=== PATIENT | female | born 1950 | race Caucasian/White ===

== ENCOUNTER → 2017-07-29 08:01 | Outpatient (CLI) | payer MEDICARE, SELFPAY ==
[2017-07-29 09:19] LABS: Absolute Lymphocyte Count 1.62 X10^3/ul (0.83-4.51); Absolute Neutrophil Count 3.9 X10^3/uL (2.0-7.7); Basophil# 0.02 X10^3/uL; Basophil% 0.3 % (0-1); Eosinophil# 0.21 X10^3/uL; Eosinophils% 3.4 % (0-5); Hemoglobin 14.1 g/dl (12.0-15.0); Lymphocyte # 1.62 X10^3/ul (4.0); Lymphocyte % 25.9 % (19-41); Mean Corp Hgb Conc 33.6 g/gl (32-36); Mean Corpuscular Hgb 32.3 pg (27.0-32.0); Mean Corpuscular Volume 96.1 fL (81-99); Mean Platelet Vol. 9.1 fl (6.2-12.0); Monocyte# 0.52 X10^3/uL; Monocyte% 8.3 % (0-10); Neutrophil # 3.88 X10^3/uL (2.7-7.7); Neutrophil % 61.9 % (47-70); Platelet Count 207 K/mm3 (150-450); RBC Distribution Width CV 12.4 % (11.6-14.6); RBC Distribution Width SD 43.8 fl (35.1-43.9); Red Blood Count 4.37 M/mm3 (4.2-5.4); White Blood Count 6.3 K/mm3 (4.4-11.0)
[2017-07-29 09:20] LABS: POSITIVE COUNT NO; POSITIVE DIFFERENTIAL NO; POSITIVE MORPHOLOGY NO
--- NOTE | 2017-07-29 09:51 | BI_ITS ---
MAMMOGRAPHY - BILATERAL SCREENING REASON FOR EXAM: Female, 67 years old. Routine annual screening examination. PERTINENT HISTORY: Non-contributory. TECHNIQUE: Digital bilateral breast bk (3D mammographic acquisition) in the CC and MLO projections. 2-D mediolateral oblique (MLO) and craniocaudad (CC) views of both breasts were obtained. CAD: Full Field Digital Mammography with Computer Added Detection was performed. COMPARISON: Comparison is made with prior study dated December 08, 2011. FINDINGS: Breast Composition: There are scattered areas of fibroglandular density. There are no dominant masses or suspicious calcifications. No other significant abnormalities are identified. There has been no significant change since the prior study. BI/SCREENING MAMM (CAD), BILAT IMPRESSION: Stable bilateral screening mammogram. Yearly follow-up mammogram recommended. (A) ASSESSMENT CATEGORY: BIRADS Category 1: Negative. A letter regarding these results will be sent to the patient by the facility within 30 days. Approximately 10% of breast cancers are not detected by mammography. A normal mammogram should not delay biopsy of a clinically suspicious abnormality. [id number] Electronically Signed: Stevo Barraza MD at 13:01 EDT Tel [phone], Service support ,
[2017-07-29 09:52] LABS: ALB/GLOB Ratio 0.9 RATIO (0.9-2.4); AST(SGOT) 33 U/L (15-37); Alanine Aminotransfer ALT/SGPT 32 U/L (13-56); Albumin, Serum 3.5 g/dL (3.2-5.0); Alkaline Phosphatase 68 U/L (45-117); Anion Gap 6 (5-15); BUN 19 mg/dL (7-18); BUN/Creat Ratio 26.3 RATIO (10-20); Calcium,Total 8.4 mg/dL (8.5-10.1); Chloride 108 mmol/L (98-107); Cholesterol 234 mg/dL (200); Creatinine, Serum 0.72 mg/dL (0.55-1.02); EST Glomerular Filtration Rate 85 mL/min (>60); Est Glom Filt Rate - Afr Amer 103 mL/min (>60); Globulin 3.7 g/dL (2.2-4.2); Glucose 82 mg/dL (74-106); High Density Lipoprotein 67 mg/dL; Potassium 3.7 mmol/L (3.5-5.1); Protein, Total 7.2 g/dL (6.4-8.2); Sodium Level 139 mmol/L (136-145); Triglycerides 82 mg/dL; Very Low Density Lipoprotein 16 mg/dL (5-40)
== END ==
PROVIDERS: Family Provider Family Medicine; PCP Family Medicine; Visit Provider Family Medicine
DX: Z00.00 Encounter for general adult medical examination without abnormal findings (principal); Z12.31 Encounter for screening mammogram for malignant neoplasm of breast
CPT/HCPCS: 36415; 77063; 77067; 80053; 80061; 85025

== ENCOUNTER → 2020-03-19 08:34 | Outpatient (CLI) | payer MEDICARE, SELFPAY ==
[2020-03-19 09:27] LABS: Cholesterol 255 mg/dL (200); High Density Lipoprotein 61 mg/dL; Triglycerides 230 mg/dL; Very Low Density Lipoprotein 46 mg/dL (5-40)
--- NOTE | 2020-03-19 09:52 | BI_ITS ---
MAMMOGRAPHY - BILATERAL SCREENING REASON FOR EXAM: Female, 69 years old. Routine annual screening examination. PERTINENT HISTORY: Non-contributory. TECHNIQUE: Digital bilateral breast graham (3D mammographic acquisition) in the CC and MLO projections. 2-D mediolateral oblique (MLO) and craniocaudad (CC) views of both breasts were obtained. CAD: Full Field Digital Mammography with Computer Added Detection was performed. COMPARISON: Comparison is made with prior study dated 07/29/2017 and 12/08/2011. FINDINGS: Breast Composition: There are scattered areas of fibroglandular density. There are no dominant masses or suspicious calcifications. No other significant abnormalities are identified. There has been no significant change since the prior study. BI/SCRN MAMM (CAD)W/GRAHAM BILAT IMPRESSION: Stable bilateral screening mammogram. Yearly follow-up mammogram recommended. (A) ASSESSMENT CATEGORY: BIRADS Category 1: Negative. A letter regarding these results will be sent to the patient by the facility within 30 days. Approximately 10% of breast cancers are not detected by mammography. A normal mammogram should not delay biopsy of a clinically suspicious abnormality. [id number] Electronically Signed: Stevo Barraza MD at 12:30 EST , Service support ,
== END ==
PROVIDERS: PCP Family Medicine; Referring Provider Family Medicine; Visit Provider Family Medicine
DX: Z12.31 Encounter for screening mammogram for malignant neoplasm of breast (principal); E78.5 Hyperlipidemia, unspecified
CPT/HCPCS: 36415; 77063; 77067; 80061

== ENCOUNTER → 2020-04-30 08:28 | Outpatient (CLI) | payer MEDICARE, SELFPAY ==
--- NOTE | 2020-04-30 08:55 | RAD_ITS ---
STUDY: AIR-CONTRAST UPPER GI SERIES. REASON FOR EXAM: Female, 70 years old. HIATAL HERNIA FLUOROSCOPY TIME (if supplied): ( 52 seconds ) minutes/seconds. 20 images were obtained. TECHNIQUE: The patient ingested barium. Multiple images of the esophagus stomach and duodenum were obtained. COMPARISON: None. FINDINGS: There is evidence of a small hernia with gastroesophageal reflux. No esophageal masses or ulcerations present. The stomach and duodenum are unremarkable. No evidence of filling defect or ulceration. RAD/Upper GI Dual Contrast IMPRESSION: Small sliding hiatal hernia with gastroesophageal reflux. Electronically Signed: Stevo Barraza MD at 14:00 EDT , Service support ,
== END ==
PROVIDERS: PCP Family Medicine; Referring Provider Family Medicine; Visit Provider Family Medicine
DX: K44.9 Diaphragmatic hernia without obstruction or gangrene (principal); K21.9 Gastro-esophageal reflux disease without esophagitis
CPT/HCPCS: 74246

== ENCOUNTER 2020-05-07 05:18 | Day surgery (SDC) | payer MEDICARE, SELFPAY ==
[2020-05-05 10:01] VITALS: BMI 30.3
[2020-05-07] VITALS (7 sets, daily range): BP systolic 98–134; BP diastolic 56–71; PULSE 48–74; RESP 14–16; TEMP 36.1–36.6; O2SAT 95–97
--- NOTE | 2020-05-07 | COLBX_PTH ---
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 Ramesh Seymour MD : 1950 BED: DIS: 05/07/2020 SPEC #: [id number] RECD: 05/07/20 07:45 STATUS: EVELYN REDDY #: [id number] SUN: 05/07/20 00:[address]: Ramesh Seymour DEPT: SURGICAL PATHOLOGY RECD BY: Kailash Han ENTERED: 05/07/20 07:46 SP TYPE: COLON BX OTHR DR: Dr. Sania Benson MD Tissues: A - Duodenum, NOS B - Gastric mucous membrane C - Esophageal mucous membrane D - Esophageal mucous membrane Procedures: Surgery Specimen Level IV HEADER OPERATION: EGD ([facility] [place]) PRE-OP DIAGNOSIS: Hiatal hernia with gastroesophageal reflux TISSUE SUBMITTED: A - Duodenum biopsy, B - Antrum biopsy for H. pylori and path, C - Distal esophagus biopsy, D - Mid esophagus biopsy MICROSCOPIC DIAGNOSIS A. Duodenum biopsy: A fragment of duodenal mucosa with minimal nonspecific chronic inflammation. B. Gastric antrum, biopsy: Mild gastritis. See microscopic description and comment. C. Distal esophagus, biopsy: Fragments of squamous epithelium with minimal chronic inflammation. D. Mid esophagus, biopsy: Fragments of squamous epithelium with minimal chronic inflammation. SJ:tung 05/08/2020 COMMENT B. The results of immunohistochemistry for Helicobacter pylori will be reported separately ([id number]). MICROSCOPIC DESCRIPTION Slides are reviewed. GROSS DESCRIPTION A - Received in fixative is one container labeled with the patient's name and designated duodenum biopsy. The specimen consists of one irregular fragment of light verma soft tissue that measures 0.5 x 0.5 x 0.1 cm. The specimen is totally submitted in one cassette. B - Received in fixative is one container labeled with the patient's name and designated gastric antrum. The specimen consists of one irregular fragment of light verma soft tissue that measures 0.3 x 0.3 x 0.1 cm. The specimen is totally submitted in one cassette. C - Received in fixative is one container labeled with the patient's name and designated distal esophagus. The specimen consists of two irregular fragments of light verma soft tissue that in aggregate measure 0.5 x 0.3 x 0.1 cm. The specimen is totally submitted in one cassette. D - Received in fixative is one container labeled with the patient's name and designated mid esophagus. The specimen consists of two irregular fragments of light verma soft tissue that in aggregate measure 0.5 x 0.5 x <0.1 cm. The specimen is totally submitted in one cassette. / AM:tung 05/07/20 TC:3 CPT: 23904 x4
[2020-05-07] MEDS: Lactated Ringers 1,000 ML 100 ML IV (06:05)
--- NOTE | 2020-05-07 06:07 | PCM.HP.BLA ---
Problem List (1) Hiatal hernia with gastroesophageal reflux Status: Acute History and Physical Date of Admission: 05/07/20 Intake Visit Reasons: HIATAL HERNIA Chief Complaint: Hiatal Hernia Employee Relations Consultant Required: No Accompanied by: Is patient in pain?: No Allergies codeine Allergy (Intermediate, Verified 05/05/20 10:03) nausea and vomiting Medications NK 05/05/20 [History Confirmed 05/05/20] [facility] Medical History (Updated 05/05/20 @ 10:[address] Ramesh Seymour MD) Hiatal hernia with gastroesophageal reflux (Acute) Acid reflux (Acute) Constipation (Acute) Depression (Acute) Difficulty swallowing (Acute) Hiatal hernia (Acute) History of brain tumor (Acute) Surgical History (Updated 05/05/20 @ 09:59 by Rita Aguero) History of brain surgery (Acute) Family History (Updated 05/05/20 @ 10:01 by Rita Aguero) Brother Cancer Father Heart disease Sister High cholesterol Mother Osteoporosis Social History (Updated 05/05/20 @ 10:[address] 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 70-year-old female. She claims she had 2 episodes. 1 when she was reaching upwards towards a shelf. She had pain starting at the umbilicus then moving upward to the epigastrium then beneath the breastbone. She became nauseated had sweating. The pain was very intense. She was able to move her bowels and resolve the discomfort. She had a second episode that occurred when she was bending over. Similar type of severe pain. Again immediately causing her to be nauseated and sweating. She is referred by Dr. Sania Benson for surgical consultation regarding these episodes and a written copy my surgical consult recommendations will return to her. To evaluate this on April 30, 2020 the patient had a contrast upper GI study. This shows a small sliding Hunnell hernia with GE reflux. On my review of that study however on one of the images the stomach appears to be rather tightly compressed within the hernia. She has not had a previous abdominal surgery. She has had previous brain surgery for compressive benign tumor [facility] Imaging Services [address] [place] [address] Upper GI Dual Contrast MR#: [id number] Name: OMID BRASHERRep #:[id number] : 1950F 70 From: Stevo Barraza MD PCP:Dr. Sania Benson MD Status:REG CLI Study:Upper GI Dual Contrast Date of Exam:04/30/20 Exam#[id number] Ordering Dr: Sania Benson MD STUDY: AIR-CONTRAST UPPER GI SERIES. REASON FOR EXAM: Female, 70 years old. HIATAL HERNIA FLUOROSCOPY TIME (if supplied): ( 52 seconds ) minutes/seconds. 20 images were obtained. TECHNIQUE: The patient ingested barium. Multiple images of the esophagus stomach and duodenum were obtained. COMPARISON: None. FINDINGS: There is evidence of a small hernia with gastroesophageal reflux. No esophageal masses or ulcerations present. The stomach and duodenum are unremarkable. No evidence of filling defect or ulceration. RAD/Upper GI Dual Contrast IMPRESSION: Small sliding hiatal hernia with gastroesophageal reflux. 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 is a 70 F who presents to the office today for ROS General General: Yes weight change and fatigue; no appetite, colon cancer, breast cancer or weakness HEENT HEENT: Yes difficulty swallowing; no eye injury, eye surgery, swollen glands or hoarseness Endo Endocrine: No thyroid disease, diabetes mellitus, thyroid cancer, Hair loss, heat intolerance or cold intolerance Skin Skin: No rash or changing moles Breast Breast: No left breast lump, right breast lump, nipple discharge, breast pain, abnormal mammogram, abnormal US or breast enlargement Musc Musculoskeletal: No back problems, arthritis, rheumatoid arthritis, gout or joint pain Cardio Cardiovascular: No murmur, pacemaker, heart disease, atrial fibrillation, high blood pressure, heart attack, heart stent, palpitations, shortness of breat with exertion or chest pain Psych Psychiatric: Yes depression; no anxiety or hearing voices Resp Respiratory: No shortness of breath, No sleep apnea, No cough, No COPD, No asthma, No emphysema, No wheezing Gastro Gastrointestinal: No abdominal pain, No nausea or vomiting, No diarrhea, Yes constipation, No blood in stool, Yes acid reflux, No hemorrhoids, No ulcers, No gallbladder problem, No black,tarry stools Rusty Hematologic: No blood thinners, No blood disorders, No bleeding, No anemia, No blood clots Neuro Neurologic: No system reviewed and no additional complaints, except as docu, No as per HPI, No abnormal walking, No abnormal hearing, No abnormal movements, No abnormal speech, No behavioral changes, No burning sensations, No confusion, No seizure-like activity, No unsteadiness, No dizziness, No localized weakness, No frequent falls, No headache(s), No lack of coordination, No loss of vision, No memory loss, No numbness, No other visual disturbances, No radiating pain, No restless legs, No sensory deficit, No fainting, No tingling, No tremor(s), No weakness, No other Exam Const General: cooperative, healthy appearing, comfortable, no acute distress Nutritional Appearance: average body habitus Orientation: alert, awake [facility] Head: normal to inspection Eyes General: appearance normal, both eyes and all related structures Neck Neck: normal visual inspection Chest Breast Palpation: No nipple discharge Resp Effort & Inspection: normal respiratory effort Auscultation: clear to auscultation bilaterally Cardio Rate: regular rate Rhythm: regular rhythm Heart Sounds: no murmurs GI Palpation: soft, no hepatosplenomegaly Musc Cervical Spine: normal cervical lordosis Skin General: no rashes or lesions noted Neuro Cranial Nerves: CN's II-XI intact bilaterally Extrem General: no calf tenderness, normal gait Psych Appearance: grossly normal Assessment & Plan Problems 1. Hiatal hernia with gastroesophageal reflux K21.9; K44.9 Plan I am very concerned that she may have had 2 episodes of a temporary incarcerated hiatal hernia. Whether this is stomach that is contemporary to become incarcerated or small or large bowel cannot be determined as the patient spells have both times spontaneously resolved. The location of the severity of the pain however is quite concerning for a symptomatic hernia. I need to exclude gallbladder etiology. I recommend a gallbladder ultrasound. I recommend esophageal manometry. I recommend an esophagogastroduodenoscopy with possible biopsy or polypectomy. In addition today I have discussed the laparoscopic repair of such a defect. I discussed technique benefit risk complication alternatives. I discussed likely utilization of a toupet wrap. 1 might also consider a gastropexy. She has had an opportunity to ask and have questions answered. We will schedule procedure at her discretion. Tentatively I also plan on scheduling an operative date. I appreciate the opportunity of assisting with her surgical care Copy: Dr. Sania Seymour M.D., F.A.C.S. Orders Orders: Gallbladder Today R10.13 Coding Level of Care Code 43189 Diagnoses Hiatal hernia with gastroesophageal reflux K21.9; K44.9 I have re-examined the patient. There are no clinical changes since date of exam. Procedure Criteria Procedure Type: Elective COVID Risk Discussion: The surgeon/proceduralist and patient have discussed in detail the risk of exposure to and/or potential harm posed by the COVID-19 virus with having a surgery/procedure at this time versus the risk of delaying the surgery/procedure. It is not possible to know either the risk of delaying the surgery or procedure or chance of getting an infection with perfect accuracy, but a joint decision was made between the patient and the surgeon/proceduralist to proceed at this time with the scheduled surgery/procedure as indicated on the consent form.
--- NOTE | 2020-05-07 06:30 | IMM_PTH ---
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 Ramesh Seymour MD : 1950 BED: DIS: 05/07/2020 SPEC #: [id number] RECD: 05/07/20 09:07 STATUS: EVELYN MAUREEN #: [id number] SUN: 05/07/20 06:[address]: Ramesh Seymour DEPT: IMMUNOHISTOCHEMISTRY RECD BY: Mary Zuniga ENTERED: 05/07/20 09:08 SP TYPE: IMMUNO OTHR DR: Dr. Sania Benson MD Tissues: B - Stomach, NOS Procedures: H Pylori (initial) PHYSICIAN & INSTITUTION [place] [id number] SPECIMEN INFORMATION: Tissue Source: B - Antrum biopsy Clinical Info: Hiatal hernia with gastroesophageal reflux Specimen Number: [id number] CPT code: 96091 METHODOLOGY: Deparaffinized sections of prefer/formalin-fixed tissue or PAP/DQ stained slides are incubated with monoclonal/polyclonal antibodies/oligonucleotide probes. Localization is made via biotin free immunoperoxidase method. Appropriate controls are performed and reacted as expected. Results on target cell population are indicated in the following table: RESULTS: ANTIBODY / CLONE RESULT Block B H Pylori (polyclonal) negative These tests were developed and their performance characteristics determined by [facility]. They may not have been cleared or approved by the U.S. Food and Drug Administration. The FDA has determined that such clearance or approval is not necessary. INTERPRETATION: B. Antrum biopsy: Negative for Helicobacter pylori organisms. SJ:tung 05/08/2020
--- NOTE | 2020-05-07 06:42 | OP.CCLET_ITS ---
05/07/2020 Sania Benson [place] [id number] [place] [address] Re : Upper GI endoscopy procedure for Tiffanie Kerns Dear Dr. Benson This procedure was performed on Thursday, May 07, 2020. My impressions and recommendations are as follows: Impressions : - LA Grade A reflux esophagitis. Biopsied. - Normal mid esophagus. Biopsied. - Medium-sized hiatal hernia. - Erythematous mucosa in the antrum. Biopsied. - Erythematous duodenopathy. Biopsied. Recommendations : - Discharge patient to home. - Resume previous diet. - Continue present medications. - Use Prilosec (omeprazole) 40 mg PO daily. - Perform routine esophageal manometry in 1 day. My findings are described in the full procedure note, which is enclosed. If I can be of further assistance, please feel free to contact me at Doctor phone number(s): Work: . Sincerely, Ramesh Seymour MD 05/07/2020 6:41:59 AM This report has been signed electronically.
--- NOTE | 2020-05-07 06:42 | OP.EGD_ITS ---
Patient Name: Tiffanie Kerns Procedure Date: 05/07/2020 6:20 AM Date of : 1950 Age: 70 Procedure: Upper GI endoscopy Indications: Epigastric abdominal pain Providers: Ramesh Seymour MD Referring MD: Sania Benson Medicines: See the Anesthesia note for documentation of the administered medications Complications: No immediate complications. Procedure: Pre-Anesthesia Assessment: - Prior to the procedure, a History and Physical was performed, and patient medications and allergies were reviewed. The patient's tolerance of previous anesthesia was also reviewed. The risks and benefits of the procedure and the sedation options and risks were discussed with the patient. All questions were answered, and informed consent was obtained. Prior Anticoagulants: The patient has taken no previous anticoagulant or antiplatelet agents. ASA Grade Assessment: II - A patient with mild systemic disease. After reviewing the risks and benefits, the patient was deemed in satisfactory condition to undergo the procedure. After obtaining informed consent, the endoscope was passed under direct vision. Throughout the procedure, the patient's blood pressure, pulse, and oxygen saturations were monitored continuously. The gastroscope was introduced through the mouth, and advanced to the second part of duodenum. The upper GI endoscopy was accomplished without difficulty. The patient tolerated the procedure well. Scope In: 6:29:23 AM Scope Out: 6:34:29 AM Total Procedure Duration Time 0 hours 5 minutes 6 seconds Findings: LA Grade A (one or more mucosal breaks less than 5 mm, not extending between tops of 2 mucosal folds) esophagitis with no bleeding was found 38 cm from the incisors. Biopsies were taken with a cold forceps for histology. The mid esophagus was normal. Biopsies were taken with a cold forceps for histology. A medium-sized hiatal hernia was present. Diffuse mildly erythematous mucosa without bleeding was found in the gastric antrum. Biopsies were taken with a cold forceps for histology. Diffuse mildly erythematous mucosa without active bleeding and with no stigmata of bleeding was found in the duodenal bulb. Biopsies were taken with a cold forceps for histology. 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 Impression: - LA Grade A reflux esophagitis. Biopsied. - Normal mid esophagus. Biopsied. - Medium-sized hiatal hernia. - Erythematous mucosa in the antrum. Biopsied. - Erythematous duodenopathy. Biopsied. Recommendation: - Discharge patient to home. - Resume previous diet. - Continue present medications. - Use Prilosec (omeprazole) 40 mg PO daily. - Perform routine esophageal manometry in 1 day. Procedure Code(s): --- Professional --- 04171, Esophagogastroduodenoscopy, flexible, transoral; with biopsy, single or multiple Diagnosis Code(s): --- Professional --- K21.0, Gastro-esophageal reflux disease with esophagitis K44.9, Diaphragmatic hernia without obstruction or gangrene K31.89, Other diseases of stomach and duodenum R10.13, Epigastric pain CPT copyright 2017 [employer]. All rights reserved. The codes documented in this report are preliminary and upon hotel front office manager review may be revised to meet current compliance requirements. Ramesh Seymour MD 05/07/2020 6:41:59 AM This report has been signed electronically. Number of Addenda: 0 Note Initiated On: 05/07/2020 6:20 AM
== END 2020-05-07 07:36 | disposition home or self-care (01) ==
LOC: EN 05:18 → AC 05:19
PROVIDERS: PCP Family Medicine; Referring Provider Family Medicine; Visit Provider Surgery
PROC: 0DJ08ZZ Inspection of Upper Intestinal Tract, Via Natural or Artificial Opening Endoscopic (ICD-10-PCS; CPT 43235; principal; 2020-05-07 06:25)
DX: K21.00 Gastro-esophageal reflux disease with esophagitis, without bleeding (principal); K29.70 Gastritis, unspecified, without bleeding; K44.9 Diaphragmatic hernia without obstruction or gangrene; I85.00 Esophageal varices without bleeding; R10.13 Epigastric pain; Z20.822 Contact with and (suspected) exposure to COVID-19
CPT/HCPCS: 43239; 87426; 88305; 88342; J7120; J2405

== ENCOUNTER 2020-05-08 07:33 | Day surgery (SDC) | payer MEDICARE, SELFPAY ==
[2020-05-05 10:01] VITALS: BMI 30.3
[2020-05-08] MEDS: Lidocaine Jelly 2% 20 ML Syringe (URO-JET) 20 APPLIC (07:40)
[2020-05-08 07:46] VITALS: BP 127/71; PULSE 50; RESP 16; TEMP 36.2; O2SAT 96
== END 2020-05-08 08:15 | disposition home or self-care (01) ==
LOC: EN 07:34
PROVIDERS: PCP Family Medicine; Referring Provider Family Medicine; Visit Provider Surgery
PROC: F00ZJWZ Instrumental Swallowing and Oral Function Assessment using Swallowing Equipment (ICD-10-PCS; CPT 43235; principal; 2020-05-08 07:25)
DX: K44.9 Diaphragmatic hernia without obstruction or gangrene (principal)
CPT/HCPCS: 91299; 76705

== ENCOUNTER → 2020-05-08 08:18 | Outpatient (CLI) | payer MEDICARE, SELFPAY ==
[2020-05-05 10:01] VITALS: BMI 30.3
--- NOTE | 2020-05-08 08:19 | US_ITS ---
STUDY: ABDOMINAL ULTRASOUND - RIGHT UPPER QUADRANT REASON FOR VISIT: Female, 70 years old Epigastric pain TECHNIQUE: Ultrasound evaluation of the right upper quadrant was performed with real-time and static amor-scale imaging. TECHNICAL QUALITY: Adequate. COMPARISON: None. FINDINGS: Liver: The liver measures 10.7 cm. There is increased echogenicity consistent with mild degree of fatty infiltration. The bile ducts are within normal limits. There is hepatic color flow. The direction of portal flow is hepatopetal. There is no demonstrated mass lesion. Gallbladder: Normal distended gallbladder. The gallbladder wall measures 2.8 mm. There is a negative sonographic Obregon''s sign. There is no pericholecystic fluid. There are no gallstones. Common Bile Duct (C.B.D.): The common bile duct measures 3.6 mm. Pancreas: Normal size of the head, body of the pancreas. The tail portion is obscured due to overlying bowel gas. There is normal echogenicity of the pancreas. There is no demonstrated pancreatic mass or cyst. Right Kidney: Normal size of the right kidney. The right kidney measures 9.4 cm x 4 cm x 3.7 cm. Normal renal cortex. The right cortex measures 1.3 cm. There is no demonstrated renal mass or cyst. There is no right hydronephrosis. US/Gallbladder IMPRESSION: Mild degree of fatty infiltration of the liver. Electronically Signed: Stevo Barraza MD at 14:54 EDT , Service support ,
== END ==
PROVIDERS: PCP Family Medicine; Referring Provider Surgery; Visit Provider Surgery
DX: K76.0 Fatty (change of) liver, not elsewhere classified (principal); R10.13 Epigastric pain
CPT/HCPCS: 76705

== ENCOUNTER 2020-05-27 10:32 | Observation (INO) | payer MEDICARE, SELFPAY ==
[2020-05-05 10:01] VITALS: BMI 30.3
--- NOTE | 2020-05-23 10:16 | EKG12_ITS ---
Test Reason : PREOP Blood Pressure : / mmHG Vent. Rate : 052 BPM Atrial Rate : 052 BPM P-R Int : 154 ms QRS Dur : 082 ms QT Int : 446 ms P-R-T Axes : -11 036 -19 degrees QTc Int : 414 ms Sinus bradycardia with sinus arrhythmia Low voltage QRS Nonspecific T- wave abnormality Abnormal ECG Confirmed by CESAR CASTRO, COY ([id number]), proposal editor ELIZABETH YAÑEZ ([id number]) on 05/26/2020 9:01:26 AM Referred By: Ramesh Seymour Confirmed By:COY GUERRERO MD
[2020-05-23 11:17] LABS: Hematocrit 44.2 % (37-47); Hemoglobin 14.4 g/dL (12.0-15.0); Mean Corp Hgb Conc 32.6 g/dL (32-36); Mean Corpuscular Hgb 31.8 pg (27.0-32.0); Mean Corpuscular Volume 97.6 fL (81-99); Mean Platelet Vol. 9.5 fl (6.2-12.0); Platelet Count 211 K/mm3 (150-450); RBC Distribution Width CV 12.2 % (11.6-14.6); RBC Distribution Width SD 43.9 fl (35.1-43.9); Red Blood Count 4.53 M/mm3 (4.2-5.4); White Blood Count 5.8 K/mm3 (4.4-11.0)
[2020-05-23 11:45] LABS: Anion Gap 4 (5-15); BUN 19 mg/dL (7-18); BUN/Creat Ratio 19.8 RATIO (10-20); Calcium,Total 9.1 mg/dL (8.5-10.1); Chloride 109 mmol/L (98-107); Creatinine, Serum 0.96 mg/dL (0.55-1.02); EST Glomerular Filtration Rate 61 mL/min (>60); Est Glom Filt Rate - Afr Amer 74 mL/min (>60); Glucose 77 mg/dL (74-106); Potassium 3.5 mmol/L (3.5-5.1); Sodium Level 141 mmol/L (136-145)
[2020-05-27] VITALS (11 sets, daily range): BP systolic 109–149; BP diastolic 47–76; PULSE 52–86; RESP 16–18; TEMP 36.2–36.8; O2SAT 93–98; BMI 30.9; BMI 33.2
--- NOTE | 2020-05-27 05:49 | HP.PCM_ITS ---
Problem List (1) Hiatal hernia with gastroesophageal reflux Status: Acute History and Physical Date of Admission: 05/27/20 [facility] Medical History (Updated 05/05/20 @ 10:[address] Ramesh Seymour MD) Hiatal hernia with gastroesophageal reflux (Acute) Acid reflux (Acute) Constipation (Acute) Depression (Acute) Difficulty swallowing (Acute) Hiatal hernia (Acute) History of brain tumor (Acute) Surgical History (Updated 05/05/20 @ 09:59 by Rita Aguero) History of brain surgery (Acute) Family History (Updated 05/05/20 @ 10:01 by Rita Aguero) Brother Cancer Father Heart disease Sister High cholesterol Mother Osteoporosis Social History (Updated 05/05/20 @ 10:[address] 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 70-ye ar-old female. She claims she had 2 episodes. 1 when she was reaching upwards towards a shelf. She had pain starting at the umbilicus then moving upward to the epigastrium then beneath the breastbone. She became nauseated had sweating. The pain was very intense. She was able to move her bowels and resolve the discomfort. She had a second episode that occurred when she was bending over. Similar type of severe pain. Again immediately causing her to be nauseated and sweating. She is referred by Dr. Sania Benson for surgical consultation regarding these episodes and a written copy my surgical consult recommendations will return to her. To evaluate this on April 30, 2020 the patient had a contrast upper GI study. This shows a small sliding Hunnell hernia with GE reflux. On my review of that study however on one of the images the stomach appears to be rather tightly compressed within the hernia. She has not had a previous abdominal surgery. She has had previous brain surgery for compressive benign tumor [facility] [address] [place] [address] Upper GI Dual Contrast MR#: [id number]:[id number] Name: OMID BRASHERRep #:[id number] : 1950F 70 From: Stevo Barraza MD PCP:Dr. Sania Benson MD Status:REG CLI Study:Upper GI Dual Contrast Date of Exam:04/30/20 Exam#[id number] Ordering Dr: Sania Benson MD STUDY: AIR-CONTRAST UPPER GI SERIES. REASON FOR EXAM: Female, 70 years old. HIATAL HERNIA FLUOROSCOPY TIME (if supplied): ( 52 seconds ) minutes/seconds. 20 images were obtained. TECHNIQUE: The patient ingested barium. Multiple images of the esophagus stomach and duodenum were obtained. COMPARISON: None. FINDINGS: There is evidence of a small hernia with gastroesophageal reflux. No esophageal masses or ulcerations present. The stomach and duodenum are unremarkable. No evidence of filling defect or ulceration. RAD/Upper GI Dual Contrast IMPRESSION: Small sliding hiatal hernia with gastroesophageal reflux. 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 70 F who presents to the office today for ROS General General: Yes weight change and fatigue; no appetite, colon cancer, breast cancer or weakness HEENT HEENT: Yes difficulty swallowing; no eye injury, eye surgery, swollen glands or hoarseness Endo Endocrine: No thyroid disease, diabetes mellitus, thyroid cancer, Hair loss, heat intolerance or cold intolerance Skin Skin: No rash or changing moles Breast Breast: No left breast lump, right breast lump, nipple discharge, breast pain, abnormal mammogram, abnormal US or breast enlargement Musc Musculoskeletal: No back problems, arthritis, rheumatoid arthritis, gout or joint pain Cardio Cardiovascular: No murmur, pacemaker, heart disease, atrial fibrillation, high blood pressure, heart attack, heart stent, palpitations, shortness of breat with exertion or chest pain Psych Psychiatric: Yes depression; no anxiety or hearing voices Resp Respiratory: No shortness of breath, No sleep apnea, No cough, No COPD, No asthma, No emphysema, No wheezing Gastro Gastrointestinal: No abdominal pain, No nausea or vomiting, No diarrhea, Yes constipation, No blood in stool, Yes acid reflux, No hemorrhoids, No ulcers, No gallbladder problem, No black,tarry stools Rusty Hematologic: No blood thinners, No blood disorders, No bleeding, No anemia, No blood clots Neuro Neurologic: No system reviewed and no additional complaints, except as docu, No as per HPI, No abnormal walking, No abnormal hearing, No abnormal movements, No abnormal speech, No behavioral changes, No burning sensations, No confusion, No seizure-like activity, No unsteadiness, No dizziness, No localized weakness, No frequent falls, No headache(s), No lack of coordination, No loss of vision, No memory loss, No numbness, No other visual disturbances, No radiating pain, No restless legs, No sensory deficit, No fainting, No tingling, No tremor(s), No weakness, No other Exam Const General: cooperative, healthy appearing, comfortable, no acute distress Nutritional Appearance: average body habitus Orientation: alert, awake [facility] Head: normal to inspection Eyes General: appearance normal, both eyes and all related structures Neck Neck: normal visual inspection Chest Breast Palpation: No nipple discharge Resp Effort & Inspection: normal respiratory effort Auscultation: clear to auscultation bilaterally Cardio Rate: regular rate Rhythm: regular rhythm Heart Sounds: no murmurs GI Palpation: soft, no hepatosplenomegaly Musc Cervical Spine: normal cervical lordosis Skin General: no rashes or lesions noted Neuro Cranial Nerves: CN's II-XI intact bilaterally Extrem General: no calf tenderness, normal gait Psych Appearance: grossly normal Assessment & Plan Problems 1. Hiatal hernia with gastroesophageal reflux K21.9; K44.9 Plan I am very concerned that she may have had 2 episodes of a temporary incarcerated hiatal hernia. Whether this is stomach that is contemporary to become incarcerated or small or large bowel cannot be determined as the patient spells have both times spontaneously resolved. The location of the severity of the pain however is quite concerning for a symptomatic hernia. I need to exclude gallbladder etiology. I recommend a gallbladder ultrasound. I recommend esophageal manometry. I recommend an esophagogastroduodenoscopy with possible biopsy or polypectomy. In addition today I have discussed the laparoscopic repair of such a defect. I discussed technique benefit risk complication alternatives. I discussed likely utilization of a toupet wrap. 1 might also consider a gastropexy. She has had an opportunity to ask and have questions answered. We will schedule procedure at her discretion. Tentatively I also plan on scheduling an operative date. I appreciate the opportunity of assisting with her surgical care Copy: Dr. Sania Seymour M.D., F.A.C.S. Orders Orders: Gallbladder Today R10.13 Coding Level of Care Code 48000 Diagnoses Hiatal hernia with gastroesophageal reflux K21.9; K44.9 05/07/20: EGD with Biopsy Impression: - LA Grade A reflux esophagitis. Biopsied. - Normal mid esophagus. Biopsied. Mild reflux esophagitis - Medium-sized hiatal hernia. - Erythematous mucosa in the antrum. Biopsied. Mild gastritis - Erythematous duodenopathy. Biopsied. Normal H pylori negative [facility] [address] [place] [id number] Gallbladder MR#: [id number] Acct: [id number] Name: OMID BRASHER Rep #: [id number] : 1950 F 70 From: Candelario Barraza MD PCP: Dr. Sania Benson MD Status: [facility] CLI Study:Gallbladder Date of Exam: 05/08/20 Exam# [id number] Ordering Dr: Katlyn Seymour MD STUDY: ABDOMINAL ULTRASOUND - RIGHT UPPER QUADRANT REASON FOR VISIT: Female, 70 years old Epigastric pain TECHNIQUE: Ultrasound evaluation of the right upper quadrant was performed with real-time and static amor-scale imaging. TECHNICAL QUALITY: Adequate. COMPARISON: None. FINDINGS: Liver: The liver measures 10.7 cm. There is increased echogenicity consistent with mild degree of fatty infiltration. The bile ducts are within normal limits. There is hepatic color flow. The direction of portal flow is hepatopetal. There is no demonstrated mass lesion. Gallbladder: Normal distended gallbladder. The gallbladder wall measures 2.8 mm. There is a negative sonographic Obregon''s sign. There is no pericholecystic fluid. There are no gallstones. Common Bile Duct (C.B.D.): The common bile duct measures 3.6 mm. Pancreas: Normal size of the head, body of the pancreas. The tail portion is obscured due to overlying bowel gas. There is normal echogenicity of the pancreas. There is no demonstrated pancreatic mass or cyst. Right Kidney: Normal size of the right kidney. The right kidney measures 9.4 cm x 4 cm x 3.7 cm. Normal renal cortex. The right cortex measures 1.3 cm. There is no demonstrated renal mass or cyst. There is no right hydronephrosis. US/Gallbladder IMPRESSION: Mild degree of fatty infiltration of the liver. Electronically Signed: Stevo Barraza MD at 14:54 EDT , Service support , The patient states today that since her last visit she had one additional episode. She states that just as it was starting to come on she tried rubbing her upper abdomen from a cephalad to caudad approach and felt that she was able to mitigate the response. As noted above the gallbladder ultrasound is normal With the patient and her today I discussed recommendations for a laparoscopic repair of hiatal hernia with daniela. Very careful inspection for internal herniation or other potential etiology to her discomfort will be pursued. I still have significant concerns that she is either involving the stomach or potentially a piece of small bowel within the hernia sac. This appears to be an intermittent process. She is aware that I anticipate performing a repair of her hiatal hernia with a toupee procedure. Possible gastropexy. She has had an opportunity to ask and have questions answered. We will proceed as noted. Ramesh Seymour M.D., F.A.C.S.
--- NOTE | 2020-05-27 06:30 | DCINST_ITS ---
Discharge Diet: - - Diet as described in the written discharge instructions Discharge Activity: May Not Drive - for 1 week or while taking narcotic pain medicine. May shower in (days): 1 Lifting Restrictions: 10 pounds Call your doctor if your incision/area has: Continuous Slow Oozing, Sudden Increased Bleeding, Increased Pain/ Swelling, Increased Redness, Foul Smelling Discharge Call your doctor if you observe: Fever of 101 or Higher Suture Line Care: Avoid Pulling/Pushing, Avoid Pinching/Bending Additional Dressing/Incision Instructions:: Change or remove dressing in 3 days. Leave steri-strips in place for 1 week. Allergies/Adverse Reactions: Allergies codeine Allergy (Intermediate, Verified 05/20/20 10:13) nausea and vomiting Medications to take at Discharge RX: Omeprazole 40 mg PO DAILY #30 capsule. 05/07/20 Glucos Sul 2Kcl/MSM/Chond/C/Mn [Glucosamine Chondroitin Cap] 1 each PO BID 05/20/20 Mv-Mn/Lutein/Zeax/Bilber/Hb277 [Macular Health Formula Capsule] 1 each PO BID 05/20/20 [place]-3 Fatty Acids/Fish Oil [Fish Oil 1,000 mg Capsule] 1 each PO DAILY 05/20/20 [place] 1,000 mg PO QHS 05/20/20 RX: Garlic 1 each PO BID 05/20/20 Turmeric [Turmeric Root] 5,000 gm MC BID 05/20/20 Primary Care Physician: Sania Benson MD [Primary Care Provider] - Test Results: Test results from this visit will be discussed in further detail at your follow- up appointment, if applicable. Please Follow Up With: Ramesh Seymour MD - [phone] When: Call to make an appointment to be seen in about 10 days.
[2020-05-27] MEDS: Lactated Ringers 1,000 ML 100 ML IV (06:45)
[2020-05-27] MEDS: Cefazolin 2 GM in 0.9% Normal Saline 100 ML IV (07:19)
--- NOTE | 2020-05-27 07:30 | HERN_PTH ---
PATIENT: OMID BRASHER LOC: MS3 U#:[id number] AGE/SX: 70/F ROOM: [facility] [place] RE05/27/[address]: Dr. Ramesh Seymour MD : 1950 BED: 1 DIS: 05/28/2020 SPEC #: [id number] RECD: 05/27/20 10:23 STATUS: EVELYN REDDY #: [id number] SUN: 05/27/20 07:[address]: Ramesh Seymour DEPT: SURGICAL PATHOLOGY RECD BY: Amita Orourke ENTERED: 05/27/20 12:32 SP TYPE: Hernia OTHR DR: MD Dr. Sania Schaefer MD Tissues: HERNIA Procedures: Surgery Specimen Level IV HEADER OPERATION: Laparoscopic repair of hiatal hernia with laparoscopic Toupe PRE-OP DIAGNOSIS: Hiatal hernia with GERD TISSUE SUBMITTED: Hernia sac MICROSCOPIC DIAGNOSIS Hiatal hernia sac: A piece of adipose tissue, clinically hiatal hernia sac. Lymph node tissue with reactive changes. DENNY:tnug 05/28/2020 MICROSCOPIC DESCRIPTION Slides are reviewed. GROSS DESCRIPTION Received in fixative is one container labeled with the patient's name and designated hernia sac. The specimen consists of an irregular piece of adipose tissue measuring 4 x 2 x 0.5 cm. No mass lesion is identified. The entire specimen is submitted in one cassette. / DENNY:tung 05/27/20 TC:5 CPT: 95186
[2020-05-27] MEDS: Lubricating Jelly 60 GM Tube 30 GM TOPICAL (08:28)
[2020-05-27] MEDS: Bupivacaine Mpf 0.5% 30 ML VIAL (10:11)
--- NOTE | 2020-05-27 10:18 | PCM.OPRPT ---
Problem List (1) Hiatal hernia with gastroesophageal reflux Status: Acute Report of Operation Date of Procedure: 05/27/20 Pre-Operative Diagnosis: Intractable gastroesophageal reflux disease with hiatal hernia Post-Operative Diagnosis: Same Surgery/Procedure Performed:: Laparoscopic repair of hiatal hernia with laparoscopic toupet procedure Description of Surgical Findings:: Timeout and informed consent was obtained. 70-year-old male was taken to the operating room placed upon the table underwent general endotracheal intubation anesthesia. 2 g of Ancef were given intravenously. She was placed in a low lithotomy position. Arms were carefully padded the right out on an armboard in the left outer side. Good positioning was achieved. The abdomen was sterilely prepped and draped with chlorhexidine. Sterile drapes were applied including Ioban drapes. Superior right mid abdomen just lateral to the umbilical level used a 5 mm Visiport technology to gain access to the abdomen and this was done cleanly. The abdomen was insufflated with CO2 to a pressure of 10 mmHg pressure. 10 mm trocar was placed in the left upper quadrant and 2 more 5 Handley ports were placed laterally in the left upper quadrant the abdomen. A 5 mm trocar site was placed in the epigastric area and Trudy's retractor was inserted and the liver was elevated. Inspection demonstrated the transverse colon appeared to be in normal position the stomach did not appear to be volvulized. There did seem to be a moderate sized hiatal hernia. Superficial inspection. Left gastric artery was identified and the dissection was performed cephalad to that. Gastrophrenic tissue was incised with harmonic scalpel the hernia sac I notified and this was incised off the anterior surface of the stomach carried to the left bebeto. I then for better visualization transected some of the proximal short gastrics with the harmonic scalpel good hemostasis was intact. I then with further dissection was able to open the sac adjacent to the left bebeto keeping the peritoneum completely intact with the left bebeto stable then carried out over to my dissection from the right anterior wall. Using blunt dissection was able to get access around the posterior aspect of the EG junction. This allowed me to place a 1 inch Baudilio drain which was used to help elevate. I now carefully and tediously dissected circumferentially around the esophagus. The posterior vagus nerve had been protected with the esophagus. My dissection proceeded cephalad for approximately 6 to 8 cm. I felt that I had a good amount of esophagus mobilized and on inspection of the previous hernia sac line in my mobilization I had at least 4 cm of additionally. There was no evidence of any injury. Hemostasis was intact. The right and left crura had peritoneum still attached and a were nicely visualized. I then used simple sutures of 0 Ethibond with pledgets and approximated the crura. 3 sutures were required. X. Hungarian bougie was inserted demonstrating very nice apposition of the crura and still patency. I then wrapped the fundus of the stomach and I secured the posterior aspect of the wrap to the crura with a 0 Ethibond. I then performed the toupet portion of the procedure using a 2-0 Ethibond securing the 10 o'clock position of the esophagus to the epiphrenic ligament and to the wrap portion of the stomach. In a running fashion for approximately 2-1/2 cm I approximated the wrap portion to the anterior lateral aspect of the esophagus. I secured that with intracorporeal knot tying. I then performed a similar procedure on the left side of the esophagus securing the fundus to the epiphrenic ligament and to the esophagus and then in a running fashion approximated that at approximately 2 o'clock position for approximately 2-1/2 cm. There appeared to be very nice positioning of the posterior wrap. I then performed a esophagogastroduodenoscopy. Will be dictated in probation. Air was insufflated there was absolutely no air leak. OG tube was replaced and the stomach was deflated. The 10-minute trocar site was closed using a grainy needle and a simple suture of 0 Vicryl. I performed a mini tap block using 0.5% Marcaine in the left subcostal area to hopefully give relief from the trochars. The abdomen was allowed to deflate through an antiviral valve. Trochars were removed. Skin edges were approximated opted for Monocryl subdermal stitches. Steri-Strips Telfa and OpSite dressings applied. Sponge and instrument and needle counts were reported surgically correct. It is of note that prior to performing the wrap I did excised the anterior portion of the hernia sac using a robotic scalpel. That specimen was submitted. Specimens hernia sac. Drains none. Blood loss minimal. Ramesh Seymour M.D., F.A.C.S. Type of Anesthesia:: General Anesthesiologist: Junaid Rome
[2020-05-27] MEDS: Lactated Ringers 1,000 ML 50 ML IV (13:46)
--- NOTE | 2020-05-27 16:38 | PCM.PN.SRG ---
Patient Problems: Active and Suspected Problems (Last Updated 05/05/20 @ 10:04 by Rita Aguero) Hiatal hernia with gastroesophageal reflux (Acute) Subjective: Patient feels that she is doing fairly well. She states that she is drinking water without difficulty. It is difficult for her to take a deep breath because of a deep-seated soreness. She has no abdominal wall discomfort. - Physical Exam Vitals/I&O's: Vital Signs Temp Pulse Resp BP Pulse Ox 97.8 F 55 L 16 138/66 H 95 05/27/20 14:15 05/27/20 14:15 05/27/20 14:15 05/27/20 14:15 05/27/20 14:15 Oxygen Delivery Method Room Air Weight: 181 lb 7.047 oz Body Mass Index (BMI) 33.2 Intake and Output for Last 24 Hours 05/25/20 05/26/20 05/27/20 23:59 23:59 23:59 Intake Total 660 / 660 Balance 660 / 660 Microbiology Past 72 Hours 05/26/20 10:15 Interface Orders SARS-CoV-2 Antigen (Rapid) - Final Current Medications Acetaminophen (Acetaminophen 325 Mg Tablet) 650 mg PO Q6H PRN PRN PRN Reason: PAIN 1-10 Hydrocodone Bitart/Acetaminophen (Hydrocodone Bitartrate/Apap 5/325 Tablet) 1 - 2 tablet PO Q4H PRN PRN PRN Reason: PAIN 1-10 Enoxaparin Sodium (Enoxaparin 40 Mg/0.4 Ml Syringe) 40 mg SC DAILY@0600 [facility] Lactated Ringer's () 1,000 mls @ 50 mls/hr IV .Q20H [facility] Last Admin: 05/27/20 13:46 Dose: 50 mls/hr Documented by: Morphine Sulfate (Morphine 2 Mg/Ml Syringe) 1 - 2 mg IV Q1H PRN PRN PRN Reason: Pain Score 1-10 Ondansetron HCl (Ondansetron 4 Mg/2 Ml Vial) 4 mg IV Q8H PRN PRN PRN Reason: NAUSEA Pantoprazole Sodium (Pantoprazole Sodium 40 Mg Tablet) 40 mg PO DAILY [facility] Sodium Chloride (0.9% Saline Lock 10 Ml Syringe) 10 - 40 ml IV UD PRN PRN Reason: SALINE FLUSH Medical Necessity - Tobacco Use Smoking Status: Never smoker Tobacco Use: Non-smoker Assessment/Plan All Active Problems (Last Updated 05/05/20 @ 10:04 by Rita Aguero) Hiatal hernia with gastroesophageal reflux (Acute) Good progress. I will initiate clear liquids. The patient has been encouraged to mobilize and use her incentive spirometer. Ramesh Seymour M.D., F.A.C.S.
[2020-05-28 00:33] VITALS: BMI 33.2
[2020-05-28 02:36] VITALS: BP 131/65; PULSE 63; RESP 16; TEMP 36.7; O2SAT 94
[2020-05-28] MEDS: Acetaminophen 325 MG Tablet 650 MG PO ×2 (03:34→10:04)
[2020-05-28 04:05] VITALS: BMI 33.2
[2020-05-28] MEDS: Enoxaparin 40 MG/0.4 ML Syringe SC (05:34)
--- NOTE | 2020-05-28 06:05 | PN.SURG_ITS ---
Patient Problems: Active and Suspected Problems (Last Updated 05/05/20 @ 10:04 by Rita Aguero) Hiatal hernia with gastroesophageal reflux (Acute) Subjective: Is awake alert sitting in a chair, she complains of some mild epigastric discomfort but it seemed to resolve with acetaminophen. There is been no nausea. No vomiting. She states that she tolerated clear liquids well although she was very slow with it. She has had some flatus. She is voiding - Physical Exam Vitals/I&O's: Vital Signs Temp Pulse Resp BP Pulse Ox 98.1 F 63 16 131/65 H 94 05/28/20 02:36 05/28/20 02:36 05/28/20 02:36 05/28/20 02:36 05/28/20 02:36 Oxygen Delivery Method Room Air Weight: 181 lb 7.047 oz Body Mass Index (BMI) 33.2 Intake and Output for Last 24 Hours 05/26/20 05/27/20 05/28/20 23:59 23:59 23:59 Intake Total 968.33 / 968.33 Output Total 200 / 200 Balance 968.33 / 918.33 -200 / -200 Abdomen: Soft, Distended, - - Mildly diffusely tender Microbiology Past 72 Hours 05/26/20 10:15 Interface Orders SARS-CoV-2 Antigen (Rapid) - Final Current Medications Acetaminophen (Acetaminophen 325 Mg Tablet) 650 mg PO Q6H PRN PRN PRN Reason: PAIN 1-10 Last Admin: 05/28/20 03:34 Dose: 650 mg Documented by: Hydrocodone Bitart/Acetaminophen (Hydrocodone Bitartrate/Apap 5/325 Tablet) 1 - 2 tablet PO Q4H PRN PRN PRN Reason: PAIN 1-10 Enoxaparin Sodium (Enoxaparin 40 Mg/0.4 Ml Syringe) 40 mg SC DAILY@0600 [facility] Last Admin: 05/28/20 05:34 Dose: 40 mg Documented by: Lactated Ringer's () 1,000 mls @ 30 mls/hr IV .[id number] [facility] Last Infusion: 05/27/20 19:56 Dose: 30 mls/hr Documented by: Morphine Sulfate (Morphine 2 Mg/Ml Syringe) 1 - 2 mg IV Q1H PRN PRN PRN Reason: Pain Score 1-10 Ondansetron HCl (Ondansetron 4 Mg/2 Ml Vial) 4 mg IV Q8H PRN PRN PRN Reason: NAUSEA Pantoprazole Sodium (Pantoprazole Sodium 40 Mg Tablet) 40 mg PO DAILY [facility] Sodium Chloride (0.9% Saline Lock 10 Ml Syringe) 10 - 40 ml IV UD PRN PRN Reason: SALINE FLUSH Medical Necessity - Tobacco Use Smoking Status: Never smoker Tobacco Use: Non-smoker Assessment/Plan All Active Problems (Last Updated 05/05/20 @ 10:04 by Rita Aguero) Hiatal hernia with gastroesophageal reflux (Acute) Patient needs to continue to mobilize. I did discussed operative technique and some tentative discharge plans. The patient's was provided with written discharge instructions and dietary advancement instructions yesterday. I anticipate discharge today after further progress Ramesh Seymour M.D., F.A.C.S.
[2020-05-28 06:34] VITALS: BP 125/62; PULSE 58; RESP 18; TEMP 36.6; O2SAT 96
[2020-05-28 08:00] VITALS: BP 136/70; PULSE 58; RESP 16; TEMP 37.1; O2SAT 96
[2020-05-28 08:05] VITALS: PULSE 52
[2020-05-28 08:07] VITALS: BMI 33.2
[2020-05-28] MEDS: Pantoprazole Sodium 40 MG Tablet PO (10:04)
--- NOTE | 2020-05-28 11:23 | CASEMGMT ---
FALLON CM in to discuss AG form with patient. RN CM explained AG form, patient voiced understanding. Pt signed form and filed in chart. Pt provided with a copy of signed AG form. Patient had no further questions or concerns at this time.
[2020-05-28 12:55] VITALS: BP 128/66; PULSE 71; RESP 16; TEMP 36.9; O2SAT 97
== END 2020-05-28 14:05 | disposition home or self-care (01) ==
LOC: SDC 10:41 → MS3 10:41
PROVIDERS: Admitting Provider Surgery; PCP Family Medicine; Referring Provider Surgery; Visit Provider Surgery
PROC: (CPT 43325; principal; 2020-05-27 07:10)
DX: K44.9 Diaphragmatic hernia without obstruction or gangrene (principal); Z20.828 Contact with and (suspected) exposure to other viral communicable diseases; K21.9 Gastro-esophageal reflux disease without esophagitis; Z79.899 Other long term (current) drug therapy
CPT/HCPCS: 00790; 43281; 36415; 80048; 85027; 87426; 88302; 88305; 93005; 96372; 99218; 99251; C9803; J7120; G0378; G0379; G0463; J2405

== ENCOUNTER 2021-05-11 10:33 | Outpatient (CLI) | payer MEDICARE, SELFPAY ==
--- NOTE | 2021-05-11 10:37 | BI_ITS ---
MAMMOGRAPHY - BILATERAL SCREENING REASON FOR EXAM: Female, 71 years old. Routine annual screening examination. PERTINENT HISTORY: Non-contributory. TECHNIQUE: Digital bilateral breast graham (3D mammographic acquisition) in the CC and MLO projections. 2-D mediolateral oblique (MLO) and craniocaudad (CC) views of both breasts were obtained. CAD: Full Field Digital Mammography with Computer Added Detection was performed. COMPARISON: Comparison is made with prior study dated 03/19/2020 and 07/29/2017. FINDINGS: Breast Composition: There are scattered areas of fibroglandular density. There are no dominant masses or suspicious calcifications. No other significant abnormalities are identified. There has been no significant change since the prior study. BI/SCRN MAMM (CAD)W/GRAHAM BILAT IMPRESSION: Stable bilateral screening mammogram. Yearly follow-up mammogram recommended. (A) ASSESSMENT CATEGORY: BIRADS Category 1: Negative. A letter regarding these results will be sent to the patient by the facility within 30 days. Approximately 10% of breast cancers are not detected by mammography. A normal mammogram should not delay biopsy of a clinically suspicious abnormality. [id number] Electronically Signed: Stevo Barraza MD at 11:25 EDT ,
== END 2021-05-11 23:59 | disposition home or self-care (01) ==
PROVIDERS: PCP Family Medicine; Visit Provider Family Medicine
DX: Z12.31 Encounter for screening mammogram for malignant neoplasm of breast (principal)
CPT/HCPCS: 77063; 77067

== ENCOUNTER → 2022-07-02 | Outpatient (CLI) | payer MEDICARE, SELFPAY ==
--- NOTE | 2022-07-02 08:25 | BI_ITS ---
MAMMOGRAPHY - BILATERAL SCREENING REASON FOR EXAM: Female, 72 years old. Routine annual screening examination. PERTINENT HISTORY: Non-contributory. TECHNIQUE: Digital bilateral breast graham (3D mammographic acquisition) in the CC and MLO projections. 2-D mediolateral oblique (MLO) and craniocaudad (CC) views of both breasts were obtained. CAD: Full Field Digital Mammography with Computer Added Detection was performed. COMPARISON: Screening mammogram from 05/11/2021, 03/19/2020. FINDINGS: Breast Composition: There are scattered areas of fibroglandular density. There are no dominant masses or suspicious calcifications. No other significant abnormalities are identified. There has been no significant change since the prior study. BI/SCRN MAMM (CAD)W/GRAHAM BILAT IMPRESSION: Stable bilateral screening mammogram. Yearly follow-up mammogram recommended. (A) ASSESSMENT CATEGORY: BIRADS Category 1: Negative. A letter regarding these results will be sent to the patient by the facility within 30 days. Approximately 10% of breast cancers are not detected by mammography. A normal mammogram should not delay biopsy of a clinically suspicious abnormality. Electronically Signed: Philip Liu DO at 16:23 EDT ,
[2022-07-02 10:19] LABS: Absolute Lymphocyte Count 1.53 X10^3/uL (0.83-4.51); Absolute Neutrophil Count 3.3 X10^3/uL (2.0-7.7); Basophil# 0.03 X10^3/uL; Basophil% 0.6 % (0-1); Eosinophil# 0.14 X10^3/uL; Eosinophils% 2.6 % (0-5); Hematocrit 45.3 % (37-47); Hemoglobin 14.8 g/dL (12.0-15.0); Lymphocyte # 1.53 X10^3/ul (0.83-4.51); Lymphocyte % 28.1 % (19-41); Mean Corp Hgb Conc 32.7 g/dL (32-36); Mean Corpuscular Hgb 32.5 pg (27.0-32.0); Mean Corpuscular Volume 99.3 fL (81-99); Mean Platelet Vol. 9.5 fl (6.2-12.0); Monocyte# 0.44 X10^3/uL; Monocyte% 8.1 % (0-10); NRBC Flagged by Analyzer 0 % (0-5); Neutrophil # 3.29 X10^3/uL (2.7-7.7); Neutrophil % 60.2 % (47-70); Platelet Count 247 K/mm3 (150-450); RBC Distribution Width CV 12.2 % (11.6-14.6); RBC Distribution Width SD 44.7 fl (35.1-43.9); Red Blood Count 4.56 M/mm3 (4.2-5.4); White Blood Count 5.5 K/mm3 (4.4-11.0)
[2022-07-02 11:02] LABS: ALB/GLOB Ratio 0.9 RATIO (0.9-2.4); AST(SGOT) 19 U/L (15-37); Alanine Aminotransfer ALT/SGPT 28 U/L (13-56); Albumin, Serum 3.6 g/dL (3.2-5.0); Alkaline Phosphatase 64 U/L (45-117); Anion Gap 7 (5-15); BUN 17 mg/dL (7-18); BUN/Creat Ratio 20.5 RATIO (10-20); Calcium,Total 8.9 mg/dL (8.5-10.1); Chloride 106 mmol/L (98-107); Cholesterol 249 mg/dL (200); Creatinine, Serum 0.83 mg/dL (0.55-1.02); EST Glomerular Filtration Rate 72 mL/min (>60); Est Glom Filt Rate - Afr Amer 87 mL/min (>60); Globulin 3.8 g/dL (2.2-4.2); Glucose 84 mg/dL (74-106); High Density Lipoprotein 79 mg/dL; Potassium 4.3 mmol/L (3.5-5.1); Protein, Total 7.4 g/dL (6.4-8.2); Sodium Level 144 mmol/L (136-145); Thyroid Stim Hormone (TSH) 4.14 uIU/mL (0.358-3.74); Triglycerides 97 mg/dL; Very Low Density Lipoprotein 19 mg/dL (5-40)
== END | disposition home or self-care (01) ==
PROVIDERS: PCP Family Medicine; Referring Provider Family Medicine; Visit Provider Family Medicine
DX: Z12.31 Encounter for screening mammogram for malignant neoplasm of breast (principal); R53.83 Other fatigue; E78.5 Hyperlipidemia, unspecified
CPT/HCPCS: 36415; 77063; 77067; 80053; 80061; 84443; 85025

== ENCOUNTER → 2022-07-14 | Outpatient (CLI) | payer MEDICARE, SELFPAY ==
[2022-07-14 09:41] LABS: Free T3 2.1 pg/mL (2.18-3.98); T4 Free Direct 0.81 ng/dL (0.76-1.46)
== END | disposition home or self-care (01) ==
PROVIDERS: PCP Family Medicine; Referring Provider Family Medicine; Visit Provider Family Medicine
DX: E03.9 Hypothyroidism, unspecified (principal)
CPT/HCPCS: 36415; 84439; 84481

== ENCOUNTER → 2022-10-20 | Outpatient (CLI) | payer MEDICARE, SELFPAY ==
[2022-10-20 11:01] LABS: Free T3 1.7 pg/mL (2.18-3.98); T4 Free Direct 0.84 ng/dL (0.76-1.46); Thyroid Stim Hormone (TSH) 3.41 uIU/mL (0.358-3.74)
== END | disposition home or self-care (01) ==
PROVIDERS: PCP Family Medicine; Referring Provider Family Medicine; Visit Provider Family Medicine
DX: E03.9 Hypothyroidism, unspecified (principal)
CPT/HCPCS: 36415; 84439; 84443; 84481

== ENCOUNTER → 2023-11-07 | Outpatient (CLI) | payer MEDICARE, SELFPAY ==
--- NOTE | 2023-11-07 08:31 | BI_ITS ---
MAMMOGRAPHY - BILATERAL SCREENING 3-D TOMOSYNTHESIS REASON FOR EXAM: Female, 73 years old. SCREENING PERTINENT HISTORY: No significant family history. TECHNIQUE: 2-D mammograms and 3-D Tomosynthesis of the breast (s) were performed. CAD was performed. COMPARISON: 07/02/2022 FINDINGS: The breast composition is composed of scattered fibroglandular density. Scattered benign calcifications are seen. Subcentimeter oval obscured equal density mass in the retroareolar right breast at posterior depth and focal compression views recommended for further evaluation. No dominant mass left breast. No suspicious calcifications.. No architectural distortion is identified. There is no skin thickening or retraction. BI/SCRN MAMM (CAD)W/GRAHAM BILAT IMPRESSION: Further imaging evaluation is recommended. ASSESSMENT CATEGORY: BIRADS Category 0: Incomplete. Need additional imaging evaluation as above. A letter regarding these results will be sent to the patient by the facility within 30 days. FOLLOW UP RECOMMENDATION: Additional imaging recommended as above. (E) Approximately 10% of breast cancers are not detected by mammography. A normal mammogram should not delay biopsy of a clinically suspicious abnormality. Electronically Signed: Kareem Hedrick MD at 21:24 EDT ,
== END | disposition home or self-care (01) ==
LOC: OPBI 08:28
PROVIDERS: PCP Family Medicine; Referring Provider Family Medicine; Visit Provider Family Medicine
DX: Z12.31 Encounter for screening mammogram for malignant neoplasm of breast (principal)
CPT/HCPCS: 77063; 77067

== ENCOUNTER → 2023-11-11 | Outpatient (CLI) | payer MEDICARE, SELFPAY ==
--- NOTE | 2023-11-11 08:44 | BI_ITS ---
MAMMOGRAPHY - UNILATERAL DIAGNOSTIC: RIGHT BREAST REASON FOR EXAM: Female, 73 years old. Abnormal screening mammogram. PERTINENT HISTORY: Comparison is made with prior study November 07, 2023. TECHNIQUE: Compression spot views of the right breast in mediolateral oblique and craniocaudad projections were obtained. CAD: Full Field Digital Mammography with Computer Added Detection was performed. COMPARISON: Comparison is made with prior study of November 07, 2023. FINDINGS: Breast Composition: There are scattered areas of fibroglandular density. There are no dominant masses or suspicious calcifications. Persistent 4 mm nodular density in the deep slightly upper aspect of the right breast. Correlation with ultrasound recommended. No other significant abnormalities are identified. BI/DIAG MAMM W/CAD, UNILAT IMPRESSION: Small nodule in the deep upper aspect of the right breast as described. Correlation with ultrasound recommended. ASSESSMENT CATEGORY: BIRADS Category 0: Incomplete. Need additional imaging evaluation. A letter regarding these results will be sent to the patient by the facility within 30 days. Approximately 10% of breast cancers are not detected by mammography. A normal mammogram should not delay biopsy of a clinically suspicious abnormality. Electronically Signed: Stevo Barraza MD at 10:29 EDT ,
--- NOTE | 2023-11-11 09:41 | US_ITS ---
STUDY: ULTRASOUND BREAST - RIGHT REASON FOR EXAM: Female, 73 years old. Abnormal screening mammogram. TECHNIQUE: Axial and longitudinal images of the RIGHT breast were performed with a high resolution ultrasound transducer. # OF IMAGES: 25 COMPARISON: Comparison is made with prior mammogram dated November 07, 2023 and November 11, 2023. FINDINGS: RIGHT Breast: The upper outer aspect of the right breast was examined with ultrasound. The mammographic abnormality corresponds to a 8 mm x 6 mm x 5 mm benign-appearing lymph node at the 9:00 position of the breast at 11 cm from the nipple. US/Breast Limited Unilateral IMPRESSION: The mammographic abnormality corresponds to an 8 mm x 6 mm x 5 mm benign-appearing lymph node at the 9:00 position of the breast as well as sinus from the nipple. ASSESSMENT CATEGORY: BIRADS Category 2: Benign. A letter regarding these results will be sent to the patient by the facility within 30 days. Electronically Signed: Stevo Barraza MD at 10:57 EDT ,
== END | disposition home or self-care (01) ==
PROVIDERS: PCP Family Medicine; Referring Provider Family Medicine; Visit Provider Family Medicine
DX: R92.8 Other abnormal and inconclusive findings on diagnostic imaging of breast (principal)
CPT/HCPCS: 76642; 77065

== ENCOUNTER → 2024-06-08 | Outpatient (CLI) | payer MEDICARE, SELFPAY ==
[2024-06-08 08:34] LABS: Absolute Lymphocyte Count 2.24 X10^3/uL (0.83-4.51); Absolute Neutrophil Count 3.7 X10^3/uL (2.0-7.7); Basophil# 0.07 X10^3/uL; Eosinophil# 0.27 X10^3/uL; Hematocrit 41.6 % (37-47); Hemoglobin 14.2 g/dL (12.0-15.0); Lymphocyte # 2.24 X10^3/ul (0.83-4.51); Lymphocyte % 32.9 % (19-41); Mean Corp Hgb Conc 34.1 g/dL (32-36); Mean Corpuscular Hgb 32.6 pg (27.0-32.0); Mean Corpuscular Volume 95.6 fL (81-99); Mean Platelet Vol. 9.2 fl (6.2-12.0); Monocyte# 0.52 X10^3/uL; Monocyte% 7.6 % (0-10); NRBC Flagged by Analyzer 0 % (0-5); Neutrophil # 3.69 X10^3/uL (2.7-7.7); Neutrophil % 54.2 % (47-70); Platelet Count 228 K/mm3 (150-450); RBC Distribution Width CV 12.2 % (11.6-14.6); RBC Distribution Width SD 43.6 fl (35.1-43.9); Red Blood Count 4.35 M/mm3 (4.2-5.4); White Blood Count 6.8 K/mm3 (4.4-11.0)
[2024-06-08 09:55] LABS: Cholesterol 233 mg/dL (<=200); High Density Lipoprotein 73 mg/dL; Low Density Lipoprotein Calc. 141 mg/dL; Triglycerides 97 mg/dL; Very Low Density Lipoprotein 19 mg/dL (5-40); cholesterol:hdl ratio screen 3.21
[2024-06-08 09:56] LABS: ALB/GLOB Ratio 1.5 RATIO (0.9-2.4); AST(SGOT) 23 U/L (<=31); Alanine Aminotransfer ALT/SGPT 17 U/L (<=34); Albumin, Serum 4.1 g/dL (3.4-4.8); Alkaline Phosphatase 61 U/L (35-104); Anion Gap 9 (5-15); BUN 19 mg/dL (4-19); BUN/Creat Ratio 21.4 RATIO (10-20); Carbon Dioxide 25.2 mmol/L (21.0-32.0); Chloride 106 mmol/L (98-108); Creatinine, Serum 0.88 mg/dL (0.70-1.20); EST Glomerular Filtration Rate 69 (>60); Globulin 2.8 g/dL (2.2-4.2); Glucose 99 mg/dL (70-99); Potassium 3.8 mmol/L (3.3-5.1); Protein, Total 6.9 g/dL (5.9-8.4); Sodium Level 140 mmol/L (133-145); Total Bilirubin 0.34 mg/dL (0.00-1.30)
== END | disposition home or self-care (01) ==
LOC: LAB 08:06
PROVIDERS: PCP Family Medicine; Referring Provider Family Medicine; Visit Provider Family Medicine
DX: Z00.00 Encounter for general adult medical examination without abnormal findings (principal); E78.5 Hyperlipidemia, unspecified; K59.09 Other constipation
CPT/HCPCS: 36415; 80053; 80061; 84443; 85025

== ENCOUNTER → 2024-06-13 | Outpatient (CLI) | payer MEDICARE, SELFPAY ==
[2024-06-15 15:08] LABS: Calprotectin, Stool 14 ug/g (0-120)
[2024-06-16 01:07] LABS: Pancreatic Elastase, Fecal 509 (>200)
== END | disposition home or self-care (01) ==
LOC: LABSPEC 08:56
PROVIDERS: PCP Family Medicine; Referring Provider Student in an Organized Health Care Education/Training Program; Visit Provider Student in an Organized Health Care Education/Training Program
DX: R19.7 Diarrhea, unspecified (principal)
CPT/HCPCS: 82653; 83993; 87177; 87209; 87329; 87493

== ENCOUNTER 2024-06-28 06:02 | Day surgery (SDC) | payer MEDICARE, SELFPAY ==
--- NOTE | 2024-06-27 08:50 | PAT.ANE_ITS ---
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 When Was Last Pacemaker Check QUESTION #4 FULL TEXT: You/Your Family Experience fever (hyperthermia) with Anesthesia Last Oral Intake Last Oral intake: Last Oral Intake NPO since Meds taken in AM with sips of water? 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 - real estate marketing coordinator: PONV - real estate marketing coordinator Female Yes 06/15/24 10:17 HX of Motion Sickness No 06/15/24 10:17 HX of N/V After Surgery No 06/15/24 10:17 Non-Smoker Yes 06/15/24 10:17 Duration of Surgery greater Yes 06/15/24 10:17 than 60 minutes Number of Risk Factors 3 06/15/24 10:17 PONV Score Moderate Risk 06/15/24 10:17 Height & Weight Height & Weight: Anesthesia: Height & Weight Height 5 ft 3 in 06/13/24 09:27 Respiratory Assessment Respiratory Assessment - real estate marketing coordinator: Respiratory Tract Infection Hx - real estate marketing coordinator Hx Respiratory Tract Infection No 06/15/24 10:17 STOP Sleep Apnea STOP Sleep Apnea - real estate marketing coordinator: STOP Sleep Apnea - real estate marketing coordinator Hx Hypertension No 06/15/24 10:17 Hx Sleep Apnea No 06/15/24 10:17 CPAP BIPAP Do you snore loudly (louder No 06/15/24 10:17 than talking or can be heard Do you often feel tired/ No 06/15/24 10:17 fatigued/ sleepy during daytime? Has anyone observed you stop No 06/15/24 10:17 breathing during sleep? STOP Results Negative 06/15/24 10:17 QUESTION #5 FULL TEXT : Do you snore loudly (louder than talking or can be heard through closed doors)? Tobacco Use History Tobacco Use History - real estate marketing coordinator: Tobacco Use History - real estate marketing coordinator Tobacco Use Smoking Status Never smoker 06/15/24 10:17 Hx Tobacco Use No 06/15/24 10:17 Years Smoking Packs Smoked per Day Smoking Cessation Date was within the last 15 years Hx Smoking Cessation Date Hx Smoking Cessation Counseling Hematologic Medial History Hematologic Hx - real estate marketing coordinator: Hematologic Medical Hx - blindstitch hemmer Hx of Blood Transfusion No 06/15/24 10:17 Hx of Transfusion in last 3 No 06/15/24 10:17 Months Date of Last Transfusion (if within last 3 months) Ever experience any problems No 06/15/24 10:17 with transfusion(s)? Specify any problems Hx of Preganancy in last 3 No 06/15/24 10:17 Months Nurse Filling Out Transfusion DSCHRIBER 06/15/24 10:17 & Questions: Date: 06/15/24 06/15/24 10:17 Time: 10:18 06/15/24 10:17 Patient unable to answer at this time (ie. confused, unrespo /Reproduction History /Reproductive History - real estate marketing coordinator: /Reproductive Hx- real estate marketing coordinator Hx Now No 06/15/24 10:17 Gestational Age (in weeks): EDC: Hx Hx Para Hx Section SAB PFSH Medical History (Updated 06/15/24 @ 10:25 by Nika Tomlin) Wears glasses Post-menopausal Thyroid disease Arthritis Injury of head and neck Non-smoker Leg cramps History of rheumatic fever Left inguinal hernia Hiatal hernia with gastroesophageal reflux Constipation Home Medications ?Medication ?Instructions ?Recorded ?Last Taken ?Type ADVENTURE 2 cap PO BID 06/15/24 Unknow n History BRAIN VITALITY 2 tab PO BID 06/15/24 Unknow n History SPECTRUM MAX 1 oz PO DAILY 06/15/24 Unkno wn History SUPER OMEGA PLUS 2 cap PO DAILY 06/15/24 Unkn own History calcium carb-vit T-H2-T3-K-sod 600 2 tab PO DAILY 11/01 Unknown History mg calcium-200 unit chewable tablet Allergy/AdvReac Type Severity Reaction Status Date / Time codeine Allergy Intermediate nausea and Verified 06/15/24 10:09 vomiting Family History Brother Cancer Father Heart disease Sister High cholesterol Mother Osteoporosis Surgical History (Updated 06/15/24 @ 10:25 by Nika Tomlin) History of repair of hiatal hernia History of brain surgery Social History Smoking Status: Never smoker alcohol intake: never substance use type: does not use Audit: Pertinent Findings Pertinent Findings EKG Perinent findings: 06/22/2024. Sinus bradycardia with sinus arrhythmia [address] and T wave abnormality. Recommendation Anesthesia Recommendation Anesthesia recommendation: OPTIMIZED for anesthesia
[2024-06-28] VITALS (10 sets, daily range): BP systolic 128–163; BP diastolic 66–82; PULSE 50–67; RESP 16–18; TEMP 36.2–36.3; O2SAT 93–100; BMI 28.8
[2024-06-28] MEDS: Lactated Ringers 1,000 ML 15 ML IV (06:39)
--- NOTE | 2024-06-28 06:50 | PCM.PRE.AN2 ---
ASA Classification* ASA Classification ASA Classification: 2 Assessment & Plan Anesthesia* Anesthesia Assessment Anesthesia Assessment: Discussed sedation and/or anesthesia options, risks, benefits, and alternatives with patient/parents/legal guardian/POA. Questions invited. The patient/parents/legal guardian/POA seems to understand and agrees to proceed with anesthesia plan. Reviewed the physical assessment, medical history, allergy history and patient home medications list prior to surgery/procedure/anesthetic and documented any changes. Performed airway and anesthesia risk assessments. Anesthesia Type Anesthesia Type: General Anesthesia Focused Assessment* Temperature: 97.3 F Pulse Rate: 58 Blood Pressure: 147/78 Respiratory Rate: 16 Pulse Ox: 97 Airway Assessment Mouth opens: >3 cm Mallampati Score: II Focused Labs Anesthesia Preop lab: CBC WBC 6.8 K/mm3 (4.4-11.0) 06/08/24 08:13 06/08/24 RBC 4.35 M/mm3 (4.2-5.4) 06/08/24 08:13 06/08/24 Hgb 14.2 g/dL (12.0-15.0) 06/08/24 08:13 06/08/24 Hct 41.6 % (37-47) 06/08/24 08:13 06/08/24 Plt Count 228 K/mm3 (150-450) 06/08/24 08:13 06/08/24 CHEMISTRY Potassium 3.8 mmol/L (3.3-5.1) 06/08/24 08:13 06/08/24 Sodium 140 mmol/L (133-145) 06/08/24 08:13 06/08/24 BUN 19 mg/dL (4-19) 06/08/24 08:13 06/08/24 Creatinine 0.88 mg/dL (0.70-1.20) 06/08/24 08:13 06/08/24 Glucose 99 mg/dL (70-99) 06/08/24 08:13 06/08/24 TSH 4.690 uIU/mL (0.300-4.200) H 06/08/24 08:13 06/08/24 COAG Pre-Assessment Diagnosis/Proposed Procedure Planned Operative Procedure(s): ROBOTIC LEFT POSS BILAT INGUINAL HERNIA REPAIR WITH MESH Anesthesia History 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 When Was Last Pacemaker Check QUESTION #4 FULL TEXT: You/Your Family Experience fever (hyperthermia) with Anesthesia Last Oral Intake Last Oral intake: Last Oral Intake NPO since 00:00 06/28/24 06:40 Meds taken in AM with sips of water? 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 Female Yes 06/15/24 10:17 HX of Motion Sickness No 06/15/24 10:17 HX of N/V After Surgery No 06/15/24 10:17 Non-Smoker Yes 06/15/24 10:17 Duration of Surgery greater Yes 06/15/24 10:17 than 60 minutes Number of Risk Factors 3 06/15/24 10:17 PONV Score Moderate Risk 06/15/24 10:17 Height & Weight Height & Weight: Anesthesia: Height & Weight Height 5 ft 3 in 06/28/24 06:40 Weight: 73.8 kg 06/28/24 06:40 Body Mass Index (BMI) 28.8 06/28/24 06:40 Respiratory Assessment Respiratory Assessment - fire lieutenant: Respiratory Tract Infection Hx - fire lieutenant Hx Respiratory Tract Infection No 06/15/24 10:17 STOP Sleep Apnea STOP Sleep Apnea - fire lieutenant: STOP Sleep Apnea - fire lieutenant Hx Hypertension No 06/15/24 10:17 Hx Sleep Apnea No 06/15/24 10:17 CPAP BIPAP Do you snore loudly (louder No 06/15/24 10:17 than talking or can be heard Do you often feel tired/ No 06/15/24 10:17 fatigued/ sleepy during daytime? Has anyone observed you stop No 06/15/24 10:17 breathing during sleep? STOP Results Negative 06/15/24 10:17 QUESTION #5 FULL TEXT : Do you snore loudly (louder than talking or can be heard through closed doors)? Tobacco Use History Tobacco Use History - fire lieutenant: Tobacco Use History - fire lieutenant Tobacco Use Smoking Status Never smoker 06/15/24 10:17 Hx Tobacco Use No 06/15/24 10:17 Years Smoking Packs Smoked per Day Smoking Cessation Date was within the last 15 years Hx Smoking Cessation Date Hx Smoking Cessation Counseling Hematologic Medial History Hematologic Hx - fire lieutenant: Hematologic Medical Hx - adapted physical education aide Hx of Blood Transfusion No 06/15/24 10:17 Hx of Transfusion in last 3 No 06/15/24 10:17 Months Date of Last Transfusion (if within last 3 months) Ever experience any problems No 06/15/24 10:17 with transfusion(s)? Specify any problems Hx of Preganancy in last 3 No 06/15/24 10:17 Months Nurse Filling Out Transfusion DSCHRIBER 06/15/24 10:17 & Questions: Date: 06/15/24 06/15/24 10:17 Time: 10:18 06/15/24 10:17 Patient unable to answer at this time (ie. confused, unrespo /Reproduction History /Reproductive History - fire lieutenant: /Reproductive Hx- fire lieutenant Hx Now No 06/15/24 10:17 Gestational Age (in weeks): EDC: Hx Hx Para Hx Section SAB Active Medications Active Medications: Current Medications Generic Name Dose Route Start Last Admin Trade Name Freq PRN Reason Stop Dose Admin Cefazolin Sodium 2 gm/ Sodium 110 mls @ 150 mls/hr 06/28/24 07:30 Chloride IV 06/28/24 08:13 INTRAOP ONE Lactated Ringer's 1,000 mls @ 15 mls/hr 06/28/24 06:15 06/28/24 06:39 IV 15 mls/hr .Q48H ADAMARIS Administration PFSH Medical History Wears glasses Post-menopausal Thyroid disease Arthritis Injury of head and neck Non-smoker Leg cramps History of rheumatic fever Left inguinal hernia Hiatal hernia with gastroesophageal reflux Constipation Home Medications ?Medication ?Instructions ?Recorded ?Last Taken ?Type ADVENTURE 2 cap PO BID 06/15/24 06/27/24 History BRAIN VITALITY 2 tab PO BID 06/15/24 06/27/24 History SPECTRUM MAX 1 oz PO DAILY 06/15/24 06/27/24 History SUPER OMEGA PLUS 2 cap PO DAILY 06/15/24 06/21/24 History calcium carb-vit W-V4-I2-K-sod 600 2 tab PO DAILY 06/15/24 06/27/24 History mg calcium-200 unit chewable tablet Allergy/AdvReac Type Severity Reaction Status Date / Time codeine Allergy Intermediate nausea and Verified 06/28/24 06:38 vomiting Family History Brother Cancer Father Heart disease Sister High cholesterol Mother Osteoporosis Surgical History History of repair of hiatal hernia History of brain surgery Social History Smoking Status: Never smoker alcohol intake: never substance use type: does not use Review of Systems (Anesthesia) ROS Narrative System reviewed and no additional complaints, except as documented.
--- NOTE | 2024-06-28 07:05 | HP.PCM_ITS ---
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 Margaux Holland MD Age/Sex: 74/F Location: [facility] Status: Signed Intake Vital Signs 06/13/2508:27 Height 5 ft 3 in Weight: 161 lb 8 oz BMI 28.5 BP 120/81 H Blood Pressure Location Rt brachial Position Sitting Respiration 17 Pulse 58 L Pulse Source Monitor Temp 97.2 F L Temp Source Temporal Pulse Oximetry (%) 98 Oxygen Delivery Method room air Intake Visit Reasons: INGUINAL HERNIA Chief Complaint: inguinal hernia Is patient in pain?: No Allergies codeine Allergy (Intermediate, Verified 06/15/24 10:09) nausea and vomiting Medications ?Medication ?Instructions ?Recorded ?Confirmed ?Type ADVENTURE 2 cap PO BID 06/15/24 06/15/24 History BRAIN VITALITY 2 tab PO BID 06/15/24 06/15/24 History SPECTRUM MAX 1 oz PO DAILY 06/15/24 06/15/24 History SUPER OMEGA PLUS 2 cap PO DAILY 06/15/24 06/15/24 History calcium carb-vit H-V9-Q0-K-sod 600 2 tab PO DAILY 06/15/24 06/15/24 History mg calcium-200 unit chewable tablet Have you fallen in the past year?: No PFSH Medical History (Updated 06/15/24 @ 10:25 by Nika Tomlin) Wears glasses Post-menopausal Thyroid disease Arthritis Injury of head and neck Non-smoker Leg cramps History of rheumatic fever Left inguinal hernia Hiatal hernia with gastroesophageal reflux Constipation Surgical History (Updated 06/15/24 @ 10:25 by Nika Tomlin) History of repair of hiatal hernia History of brain surgery Family History Brother CancerFather Heart diseaseSister High cholesterolMother Osteoporosis Social History Smoking Status: Never smoker alcohol intake: never substance use type: does not use HPI HPI HPI: 74-year-old female presents due to left inguinal hernia. Patient states she gets some occasional burning discomfort with lifting. Patient states she noticed this about 8 to 12 weeks ago. Patient states that her last TSH check was little high was previously on a natural supplement which she did stop- last TSH was 4.69. Patient denies any abdominal pain tolerating diet and having bowel function. ROS General General: No weight change, appetite, fatigue, colon cancer, breast cancer or weakness HEENT HEENT: No difficulty swallowing, eye injury, eye surgery, swollen glands or hoarseness Endo Endocrine: No thyroid disease, diabetes mellitus, thyroid cancer, Hair loss, heat intolerance or cold intolerance Skin Skin: No rash or changing moles Musc Musculoskeletal: Yes arthritis; No back problems, rheumatoid arthritis, gout or joint pain Cardio Cardiovascular: No murmur, pacemaker, heart disease, atrial fibrillation, high blood pressure, heart attack, heart stent, palpitations, shortness of breath with exertion or chest pain Psych Psychiatric: No depression, anxiety or hearing voices Resp Respiratory: No shortness of breath, No sleep apnea, No cough, No COPD, No asthma, No emphysema and No wheezing Gastro Gastrointestinal: No abdominal pain, No nausea or vomiting, Yes diarrhea, No constipation, No blood in stool, No acid reflux, No hemorrhoids, No ulcers, No gallbladder problem and No black,tarry stools Rusty Hematologic: No blood thinners, No blood disorders, No bleeding, No anemia and No blood clots Neuro Neurologic: No numbness, No tingling and No weakness Exam Const General: cooperative, healthy appearing, comfortable and no acute distress HENMT Head: normocephalic and atraumatic Neck Neck: supple Resp Effort & Inspection: normal respiratory effort Cardio Rate: regular rate GI Inspection: non-distended Palpation: soft, hernia (Left inguinal, no hernia on the right inguinal) and nontender Skin General: no rashes or lesions noted Neuro General: CN's II-XI intact bilaterally Extrem General: normal to inspection Psych Mental Status: mental status grossly normal Attitude: cooperative Assessment and Plan Assessment and Plan (1) Left inguinal hernia: Status: Acute Plan Plan to do a robotic left inguinal hernia with mesh, possible bilateral. Reviewed the procedure with the patient including the risks, including but not limited to infection, bleeding, paresthesia, chronic pain, injury to small bowel, and recurrence. All questions were answered. Margaux Holland M.D. Pager: [phone] [facility] [address] [place] [address], [facility], [address] [place] [address] Office: [phone] Coding Level of Care Code Off vis,new,level 3 Diagnoses Left inguinal hernia K40.90 Clinical Quality Measures Falls Risk Screening/Assistive Devices Have you fallen in the past year?: No 06/21/24 0855 <Electronically signed by Margaux Holland MD> Date Margaux Holland MD
[2024-06-28] MEDS: Cefazolin 2 GM in 0.9% Normal Saline (100mL Bag) 100 ML IV (07:25)
[2024-06-28] MEDS: Bupivacaine Mpf 0.5% 30 ML VIAL (07:50)
--- NOTE | 2024-06-28 08:40 | OP.PCM_ITS ---
Operative Report (Standard) Operative Information Date of Procedure: 06/28/24 Pre-Operative Diagnosis: Left inguinal hernia Post-Operative Diagnosis: Direct left inguinal hernia, left femoral hernia Surgery/Procedure Performed: Robotic left inguinal hernia repair with mesh supervisor sulfuric acid plant: Yes Personal Lines Appraiser: Bernadine Posadas Tasks completed by certified surgical tech/first assistant: Opening & closing Type of Anesthesia: General/Supplemental RN Documented Start/Stop Times: Operation Date: 06/28/24 07:30 Case Time Into Pre-Op 06/28/24 06:11 Out of Pre-Op 06/28/24 07:21 Anesthesia Start 06/28/24 07:25 Into Room 06/28/24 07:25 Procedure Start 06/28/24 07:48 Procedure End 06/28/24 08:36 Anesthesia End 06/28/24 08:48 Out of Room 06/28/24 08:48 Into Recovery 06/28/24 08:50 Procedure Start Time: 07:48 Procedure Stop Time: 08:36 Select all DRAINS/GRAFTS/IMPLANTS that apply: Implanted device Implanted device details: progrip mesh Special Medications: ancef 2 grams IV x 1 Estimated Blood Loss: 5 cc Specimen collected: No Description of surgery: Indications: 74-year-old female presented with left inguinal hernia which was sy mptomatic. Robotic left inguinal hernia repair with mesh was elected patient was agreeable. Description of procedure: Patient was brought to operating room placed supine operative table. Timeout was completed verifying correct patient, procedure, site, positioning, special, prior to beginning procedure. General anesthesia was induced. Patient's arms were tucked and padded appropriately. Visiport was used to make the incision at Ewing's point in the left upper quadrant. Entry into the abdomen was confirmed visually. Laparoscope was placed. Verifying no injury during initial trocar placement. Patient was placed in Trendelenburg position. Two 8 mm trochars were placed along the horizontal line in the midline and in the right upper quadrant. The initial 5 mm trocar was upsized to an 8 mm well under direct visualization. Both the inguinal regions were inspected and left direct hernia was present, no hernia on the right. Robot was docked. The median umbilical ligament was divided sharply with electrocautery. Peritoneum was incised with the endoscopic scissors along a line 2 cm above the superior edge of the hernia defect extending from the median umbilical ligament to anterior superior iliac spine. Peritoneal flap was mobilized inferiorly using blunt and sharp dissection. There is also noted to be a small femoral hernia which was reduced. The round ligament was ligated and divided. The inferior epigastric vessels were exposed and symphysis pubis and identified. A ProGrip mesh was used. The mesh was rolled longitudinally into a compact cylinder and passed through the trocar. The cylinder was placed along the inferior aspect of the working space and unrolled into place to completely cover the direct, indirect and femoral spaces. The peritoneal flap was closed over mesh and secured with 3-0 V-Loc suture. After ensuring adequate hemostasis- robot was undocked, the trochars were removed and pneumoperitoneum allowed to escape. The skin was closed with 4-0 Monocryl interrupted sutures and Steri-Strips. Patient tolerated procedure well was taken to the postanesthesia care unit in stable condition. Surgical Findings: see operative note Complications Complications: No
--- NOTE | 2024-06-28 08:41 | DCINST_ITS ---
Discharge Instructions Diet Discharge Diet: Light diet - advance as tolerated Activity Discharge Activity: May Not Drive (while taking narcotic pain medications.) May shower in (days): 1 Lifting Restrictions: no lifting >20 lbs x 2 wks, no strenuous exercise for 4 wks Dressing / Incision Call your doctor if your incision/area has: Continuous Slow Oozing, Sudden Increased Bleeding, Increased Pain/ Swelling, Increased Redness, Foul Smelling Discharge and Swelling at the incision site Call your doctor if you observe: Fever of 101 or Higher Remove Dressing in: 2 days Cleanse incision/area with: Soap & Water Additional Dressing/Incision Instructions:: Steri-Strips will fall off in 7 to 10 days, if they do not fall off okay to remove after 10 days. Follow Up Care Please Follow Up With: Margaux Holland MD When: Call the office for a follow-up appointment 2 weeks; after 5 PM and on the weekends call [phone] with any concerns. Test Results: Test results from this visit will be discussed in further detail at your follow- up appointment, if applicable. Discharge Plan Admission Attending Provider: Margaux Holland Primary Care Provider: Sania Benson Instructions Print Language: Azerbaijani Discharge Orders/Prescriptions Prescriptions: New tramadol 50 mg tablet 50 mg PO Q6H PRN (Reason: pain) 3 Days Qty: 7 0RF Continued ADVENTURE 2 cap PO BID BRAIN VITALITY 2 tab PO BID calcium carb-vit [id number] 600 mg calcium- 200 unit tablet,chewable 2 tab PO DAILY SPECTRUM MAX 1 oz PO DAILY SUPER OMEGA PLUS 2 cap PO DAILY Other Ambulatory Orders: 12 Lead EKG (Routine) Timeframe: [id number] Facility: [facility] - Location: Cardiovascular Services Ordered By: Dr. Ish Boyce Referrals / Follow Up: Sania Benson MD [Primary Care Provider] - Disposition Disposition (needs filled in before D/C Order can be placed): Home, Self Care
--- NOTE | 2024-06-28 08:53 | PCM.POST.ANE ---
Anesthesia: Postop Eval I Current Vital Signs Temperature: 97.3 F Pulse Rate: 67 Blood Pressure: 162/82 Respiratory Rate: 16 Pulse Ox: 100 Oxygen Delivery Method: Room Air Assessment Airway patent: Yes Spontaneous unlabored respirations: Yes Mental status: Awake and Calm nausea: No Vomiting: No Anesthesia Complication: No Fluid Hydration Crystalloid volume administer (ml): 900 Total IV fluid infused: 900 Progress Note Anesthesia document: Postop Eval 1 completed: Yes
[2024-06-28] MEDS: Acetaminophen 500 MG Tablet 1000 MG PO (09:49)
--- NOTE | 2024-06-28 10:04 | POSTOPAN2_ITS ---
Anesthesia Postop Eval I Sum Postop Eval Completion status Anesthesia document: Postop Eval 1 completed: Yes Anesthesia Postop Eval I Summary Anesthesia Postop Eval I Summary: Anesthesia Postop Eval I: Assessment Summary Airway patent Yes 06/28/24 08:54 CLINICAL NURSING ASSISTANT.[email or web address] Spontaneous unlabored Yes 06/28/24 08:54 CLINICAL NURSING ASSISTANT.GDOTT respirations Mental status Awake,Calm 06/28/24 08:54 CLINICAL NURSING ASSISTANT.GDOTT nausea No 06/28/24 08:54 CLINICAL NURSING ASSISTANT.GDOTT Vomiting No 06/28/24 08:54 CLINICAL NURSING ASSISTANT.GDOTT Anesthesia Postop Eval I: Fluid Summary Crystalloid volume administer 900 06/28/24 08:54 CLINICAL NURSING ASSISTANT.GDOTT (ml) Colloids volume administered ( ml) Blood Product volume administered (ml) Total IV fluid infused 900 06/28/24 08:54 CLINICAL NURSING ASSISTANT.GDOTT Anesthesia Postop Eval I: Summary Notes Anesthesia Complication No 06/28/24 08:54 CLINICAL NURSING ASSISTANT.GDOTT Anesthesia Complication Comment: Post-operative progress note Anesthesia: Postop Eval II Evaluation Mental status: Awake Pain Level: 0 nausea: No Vomiting: No
--- NOTE | 2024-06-28 10:04 | PCM.POSTANE2 ---
Anesthesia Postop Eval I Sum Postop Eval Completion status Anesthesia document: Postop Eval 1 completed: Yes Anesthesia Postop Eval I Summary Anesthesia Postop Eval I Summary: Anesthesia Postop Eval I: Assessment Summary Airway patent Yes 06/28/24 08:54 FOOD AND BEVERAGE ANALYST.GDOTT Spontaneous unlabored Yes 06/28/24 08:54 FOOD AND BEVERAGE ANALYST.GDOTT respirations Mental status Awake,Calm 06/28/24 08:54 FOOD AND BEVERAGE ANALYST.GDOTT nausea No 06/28/24 08:54 FOOD AND BEVERAGE ANALYST.GDOTT Vomiting No 06/28/24 08:54 FOOD AND BEVERAGE ANALYST.GDOTT Anesthesia Postop Eval I: Fluid Summary Crystalloid volume administer 900 06/28/24 08:54 FOOD AND BEVERAGE ANALYST.GDOTT (ml) Colloids volume administered ( ml) Blood Product volume administered (ml) Total IV fluid infused 900 06/28/24 08:54 FOOD AND BEVERAGE ANALYST.GDOTT Anesthesia Postop Eval I: Summary Notes Anesthesia Complication No 06/28/24 08:54 FOOD AND BEVERAGE ANALYST.GDOTT Anesthesia Complication Comment: Post-operative progress note Anesthesia: Postop Eval II Evaluation Mental status: Awake Pain Level: 0 nausea: No Vomiting: No
== END 2024-06-28 14:43 | disposition home or self-care (01) ==
LOC: SDC 06:06 → AC 06:08
PROVIDERS: PCP Family Medicine; Referring Provider Surgery; Visit Provider Surgery
PROC: 0YQ64ZZ Repair Left Inguinal Region, Percutaneous Endoscopic Approach (ICD-10-PCS; CPT 49650; principal; 2024-06-28 07:10)
DX: K40.90 Unilateral inguinal hernia, without obstruction or gangrene, not specified as recurrent (principal)
CPT/HCPCS: 49650; S2900; 00840; 93005; C1781; J2405